=== PATIENT | male | born 1985 | race Caucasian/White ===

== ENCOUNTER 2016-10-22 12:07 | Emergency (ER) | payer OTHER ==
[~2016-10-22] VITALS: Ht 177.8 cm; Wt 90.6 kg
[2016-10-22 12:13] VITALS: BP 132/79
[2016-10-22] MEDS ORDERED: METFORMIN HCL1000 MG PO (12:40)
[2016-10-22] MEDS ORDERED: NAPROSYN500 MG PO (14:38)
[2016-10-22] MEDS ORDERED: TRAMADOL HCL50 MG PO (14:38)
== END 2016-10-22 15:02 | disposition home or self-care (01) ==
LOC: EME 12:07
DX: M77.9 Enthesopathy, unspecified (principal); M79.644 Pain in right finger(s); E11.9 Type 2 diabetes mellitus without complications
CPT/HCPCS: 73130; 99281; 99283